=== PATIENT | female | born 1960 | race Caucasian/White ===

== ENCOUNTER → 2018-09-27 | Outpatient (CLI) | payer OTHER ==
--- NOTE | 2018-09-27 16:11 | RADIOLOGY REPORT (SQ) ---
EXAM DESCRIPTION: CHEST 2 VIEWS COMPLETED DATE/TIME: 09/27/2018 2:57 pm REASON FOR STUDY: ACUTE BRONCHITIS, WHEEZING COMPARISON: None. EXAM PARAMETERS: NUMBER OF VIEWS: two views TECHNIQUE: Digital Frontal and Lateral radiographic views of the chest acquired. RADIATION DOSE: NA LIMITATIONS: none FINDINGS: LUNGS AND PLEURA: No opacities, masses or pneumothorax. No pleural effusion. MEDIASTINUM AND HILAR STRUCTURES: No masses or contour abnormalities. HEART AND VASCULAR STRUCTURES: Heart normal size. No evidence for failure. BONES: No acute findings. HARDWARE: None in the chest. OTHER: No other significant finding. IMPRESSION: NO ACUTE RADIOGRAPHIC FINDING IN THE CHEST. TECHNICAL DOCUMENTATION: JOB ID: [id number] [employer]- All Rights Reserved Reading location - IP/workstation name: [email or web address]
== END ==
LOC: RAD 14:36
PROVIDERS: ATTEND Family Medicine Geriatric Medicine
DX: J20.9 Acute bronchitis, unspecified (principal); R06.2 Wheezing
CPT/HCPCS: 71046

== ENCOUNTER → 2018-10-25 | Outpatient (CLI) | payer OTHER | LOC: WI 14:51 | PROVIDERS: ATTEND Family Medicine | DX: Z12.31 Encounter for screening mammogram for malignant neoplasm of breast (principal) | CPT/HCPCS: 77063; 77067 ==

== ENCOUNTER → 2018-11-25 | Outpatient (CLI) | payer OTHER ==
--- NOTE | 2018-11-25 15:46 | WOMENS IMAGING REPORT ---
EXAM DESCRIPTION: RIGHT DIAGNOSTIC MAMMO W/CAD; U/S BREAST UNILAT LIMITED COMPLETED DATE/TIME: 11/25/2018 11:18 am; 11/25/2018 12:02 pm REASON FOR STUDY: N63.11 UNSPECIFIED LUMP IN THE RIGHT BREAST,UPPER OUTER QUADRANT; N63.11 RIGHT DELROY AST N63.11 UNSPECIFIED LUMP IN THE RIGHT BREAST, UPPER OUTER KATHRINE COMPARISON: Mammograms 10/25/2018, low 08/12/2017 TECHNIQUE: Cone compression craniocaudal, exaggerated craniocaudad, 90 mediolateral and mediolatera l oblique images of the breast recorded with digital acquisition. Additional right breast ultrasound was performed LIMITATIONS: None. FINDINGS: BREAST LATERALITY: Right MASSES: No suspicious masses. In particular, no worrisome nodules in the far upper outer quadrant ar e identified. CALCIFICATIONS: No new or suspicious calcifications. ARCHITECTURAL DISTORTION: None. DEVELOPING DENSITY: None. ASYMMETRY: None noted. OTHER: No other significant findings. Read with the assistance of CAD. .[facility] - R2 Mother Helper Version 9.2 Right breast ultrasound: Ultrasound of the upper outer quadrant right breast was performed. A 3 x 3 mm breast cyst is present in the central retroareolar region. In the far upper outer quadrant 9 to 11 o'clock position, a 7 x 5 mm intramammary lymph node and 8 x 3 mm lymph node are present. IMPRESSION: No mammographic or sonographic evidence for malignancy right breast BREAST DENSITY: c. The breasts are heterogeneously dense, which may obscure small masses. BIRAD: 2 Benign findings. RECOMMENDATION: RECOMMENDED FOLLOW UP: Please continue yearly bilateral screening tomosynthesis in A pri 2020 SPECIFIC INTERVENTION/IMAGING/CONSULTATION RECOMMENDED:No additional intervention/ imaging/consultati on needed at this time. COMMUNICATION:Patient notified by letter COMMENT: The patient has been notified of the results by letter per MQSA requirements. Additional no tification policies are in place for contacting patient with suspicious or incomplete findings. Quality ID #225: The [employer] recommends an annual screening mammogram for women aged 40 years or over. This facility utilizes a reminder system to ensure that all patients receive reminder letters, and/or direct phone calls for appointments. This includes reminders for routine scr eening mammograms, diagnostic mammograms, or other Breast Imaging Interventions when appropriate. Th is patient will be placed in the appropriate reminder system. TECHNICAL DOCUMENTATION: FINDING NUMBER: (1) ASSESSMENT: (1) JOB ID: [id number] [employer]- All Rights Reserved Reading location - IP/workstation name: [email or web address]
--- NOTE | 2018-11-25 15:46 | WOMENS IMAGING REPORT ---
EXAM DESCRIPTION: RIGHT DIAGNOSTIC MAMMO W/CAD; U/S BREAST UNILAT LIMITED COMPLETED DATE/TIME: 11/25/2018 11:18 am; 11/25/2018 12:02 pm REASON FOR STUDY: N63.11 UNSPECIFIED LUMP IN THE RIGHT BREAST,UPPER OUTER QUADRANT; N63.11 RIGHT DELROY AST N63.11 UNSPECIFIED LUMP IN THE RIGHT BREAST, UPPER OUTER KATHRINE COMPARISON: Mammograms 10/25/2018, low 08/12/2017 TECHNIQUE: Cone compression craniocaudal, exaggerated craniocaudad, 90 mediolateral and mediolatera l oblique images of the breast recorded with digital acquisition. Additional right breast ultrasound was performed LIMITATIONS: None. FINDINGS: BREAST LATERALITY: Right MASSES: No suspicious masses. In particular, no worrisome nodules in the far upper outer quadrant ar e identified. CALCIFICATIONS: No new or suspicious calcifications. ARCHITECTURAL DISTORTION: None. DEVELOPING DENSITY: None. ASYMMETRY: None noted. OTHER: No other significant findings. Read with the assistance of CAD. .[facility] - R2 Pulling Unit Operator Version 9.2 Right breast ultrasound: Ultrasound of the upper outer quadrant right breast was performed. A 3 x 3 mm breast cyst is present in the central retroareolar region. In the far upper outer quadrant 9 to 11 o'clock position, a 7 x 5 mm intramammary lymph node and 8 x 3 mm lymph node are present. IMPRESSION: No mammographic or sonographic evidence for malignancy right breast BREAST DENSITY: c. The breasts are heterogeneously dense, which may obscure small masses. BIRAD: 2 Benign findings. RECOMMENDATION: RECOMMENDED FOLLOW UP: Please continue yearly bilateral screening tomosynthesis in A pri 2020 SPECIFIC INTERVENTION/IMAGING/CONSULTATION RECOMMENDED:No additional intervention/ imaging/consultati on needed at this time. COMMUNICATION:Patient notified by letter COMMENT: The patient has been notified of the results by letter per MQSA requirements. Additional no tification policies are in place for contacting patient with suspicious or incomplete findings. Quality ID #225: The [employer] recommends an annual screening mammogram for women aged 40 years or over. This facility utilizes a reminder system to ensure that all patients receive reminder letters, and/or direct phone calls for appointments. This includes reminders for routine scr eening mammograms, diagnostic mammograms, or other Breast Imaging Interventions when appropriate. Th is patient will be placed in the appropriate reminder system. TECHNICAL DOCUMENTATION: FINDING NUMBER: (1) ASSESSMENT: (1) JOB ID: [id number] [employer]- All Rights Reserved Reading location - IP/workstation name: [email or web address]
== END ==
LOC: WI 10:50
PROVIDERS: ATTEND Family Medicine
DX: N63.11 Unspecified lump in the right breast, upper outer quadrant (principal)
CPT/HCPCS: 76642

== ENCOUNTER → 2019-04-03 | Outpatient (CLI) | payer OTHER | LOC: RAD 12:18 | PROVIDERS: ATTEND Family Medicine Geriatric Medicine | DX: J20.9 Acute bronchitis, unspecified (principal) | CPT/HCPCS: 71046 ==

== ENCOUNTER → 2019-11-06 | Outpatient (CLI) | payer OTHER ==
--- NOTE | 2019-11-06 16:55 | RADIOLOGY REPORT (SQ) ---
EXAM DESCRIPTION: FOOT LEFT COMPLETE; OS CALCIS/HEEL LEFT IMAGES COMPLETED DATE/TIME: 11/06/2019 4:43 pm REASON FOR STUDY: (M79.673)PAIN IN UNSPECIFIED FOOT COMPARISON: None. FINDINGS: Two views left os calcis: Mild calcaneal bone spur. No fracture or bone lesion or erosio n. Three views left foot: Small os trigonum incidentally noted. Mild osteopenia. No fracture. Great toe MP joint degenerative arthropathy. Joints are intact otherwise. No ankle joint effusion. TECHNICAL DOCUMENTATION: JOB ID: [id number] Reading location - IP/workstation name: [email or web address]
--- NOTE | 2019-11-06 16:55 | RADIOLOGY REPORT (SQ) ---
EXAM DESCRIPTION: FOOT LEFT COMPLETE; OS CALCIS/HEEL LEFT IMAGES COMPLETED DATE/TIME: 11/06/2019 4:43 pm REASON FOR STUDY: (M79.673)PAIN IN UNSPECIFIED FOOT COMPARISON: None. FINDINGS: Two views left os calcis: Mild calcaneal bone spur. No fracture or bone lesion or erosio n. Three views left foot: Small os trigonum incidentally noted. Mild osteopenia. No fracture. Great toe MP joint degenerative arthropathy. Joints are intact otherwise. No ankle joint effusion. TECHNICAL DOCUMENTATION: JOB ID: [id number] Reading location - IP/workstation name: [email or web address]
== END ==
LOC: RAD 16:00
PROVIDERS: ATTEND Family Medicine Geriatric Medicine
DX: M12.872 Other specific arthropathies, not elsewhere classified, left ankle and foot (principal); M77.32 Calcaneal spur, left foot; M79.672 Pain in left foot

== ENCOUNTER → 2019-12-27 | Outpatient (CLI) | payer OTHER ==
[2019-12-27 16:45] LABS: ABSOLUTE BASOPHILS # (AUTO) 0.1 10^3/uL (0.0-0.2); ABSOLUTE EOSINOPHILS # (AUTO) 1.4 10^3/uL (0.0-0.6); ABSOLUTE LYMPHOCYTES (AUTO) 2.9 10^3/uL (0.5-4.7); ABSOLUTE MONOCYTES (AUTO) 0.6 10^3/uL (0.1-1.4); ABSOLUTE NEUT (AUTO) 3.1 10^3/uL (1.7-8.2); BASOPHILS % (AUTO) 1.3 % (0-2); EOSINOPHILS % (AUTO) 17.5 % (0-6); HEMATOCRIT 41.4 % (36.0-47.0); HEMOGLOBIN 14.4 g/dL (12.0-15.5); LYMPHOCYTES % (AUTO) 35.4 % (13-45); MEAN CORPUSCULAR HEMOGLOBIN 30.9 pg (27.0-33.4); MEAN CORPUSCULAR HGB CONC 34.8 g/dL (32.0-36.0); MEAN CORPUSCULAR VOLUME 89 fl (80-97); MONOCYTES % (AUTO) 7.2 % (3-13); PLATELET COUNT 263 10^3/uL (150-450); RED BLOOD COUNT 4.67 10^6/uL (3.72-5.28); RED CELL DISTRIBUTION WIDTH 13.2 % (11.5-14.0); SEGMENTED NEUTROPHILS % (AUTO) 38.6 % (42-78); TOTAL CELLS COUNTED % (AUTO) 100 %; WHITE BLOOD COUNT 8.1 10^3/uL (4.0-10.5)
[2019-12-27 17:14] LABS: ANION GAP 10 (5-19); ASPARTATE AMINO TRANSFERASE 62 U/L (14-36); BLOOD UREA NITROGEN 16 mg/dL (7-20); CARBON DIOXIDE 27 mmol/L (22-30); CHLORIDE 101 mmol/L (98-107); GLUCOSE 118 mg/dL (75-110); POTASSIUM 4.5 mmol/L (3.6-5.0); URIC ACID 8.1 mg/dL (2.5-7.5)
== END ==
LOC: OD 15:53
PROVIDERS: ATTEND Family Medicine Geriatric Medicine
DX: R74.0 Nonspecific elevation of levels of transaminase and lactic acid dehydrogenase [LDH] (principal); E83.51 Hypocalcemia; M10.9 Gout, unspecified; Z79.899 Other long term (current) drug therapy
CPT/HCPCS: 36415; 80048; 83970; 84450; 84460; 84550; 85025

== ENCOUNTER → 2020-01-22 | Outpatient (CLI) | payer OTHER ==
--- NOTE | 2020-01-22 13:15 | WOMENS IMAGING REPORT ---
EXAM DESCRIPTION: BILAT SCREENING MAMMO W/CAD IMAGES COMPLETED DATE/TIME: 01/22/2020 9:08 am REASON FOR STUDY: Z12.31 ENCOUNTER FOR SCREENING MAMMOGRAM FOR MALIGNANT NEOPLASM OF BREAST Z12.31 ENCNTR SCREEN MAMMOGRAM FOR MALIGNANT NEOPLASM OF DELROY COMPARISON: 2019 EXAM PARAMETERS: Standard craniocaudal and mediolateral oblique views of each breast recorded using digital acquisition. Read with the assistance of CAD. .[facility] - [employer] Machine Adjuster Version 9.2 LIMITATIONS: None. FINDINGS: No suspicious masses, suspicious calcifications or architectural distortion. No areas of c oncern. IMPRESSION: NEGATIVE MAMMOGRAM. BIRADS 1 BREAST DENSITY: c. The breasts are heterogeneously dense, which may obscure small masses. BIRAD: ASSESSMENT: 1 NEGATIVE RECOMMENDATION: ROUTINE SCREENING COMMENT: The patient has been notified of the results by letter per MQSA requirements. Additional no tification policies are in place for contacting patient with suspicious or incomplete findings. Quality ID #225: The [employer] recommends an annual screening mammogram for women aged 40 years or over. This facility utilizes a reminder system to ensure that all patients receive reminder letters, and/or direct phone calls for appointments. This includes reminders for routine scr eening mammograms, diagnostic mammograms, or other Breast Imaging Interventions when appropriate. Th is patient will be placed in the appropriate reminder system. TECHNICAL DOCUMENTATION: FINDING NUMBER: (1) ASSESSMENT: (1) JOB ID: [id number] 2010 [employer]- All Rights Reserved Reading location - IP/workstation name: [email or web address]
== END ==
LOC: WI 08:43
PROVIDERS: ATTEND Family Medicine Geriatric Medicine
DX: Z12.31 Encounter for screening mammogram for malignant neoplasm of breast (principal)
CPT/HCPCS: 77067

== ENCOUNTER → 2020-01-30 | Outpatient (CLI) | payer OTHER ==
[2020-01-30 17:54] LABS: ANION GAP 8 (5-19); ASPARTATE AMINO TRANSFERASE 68 U/L (14-36); BLOOD UREA NITROGEN 17 mg/dL (7-20); CALCIUM 10.9 mg/dL (8.4-10.2); CARBON DIOXIDE 28 mmol/L (22-30); CHLORIDE 100 mmol/L (98-107); GLUCOSE 91 mg/dL (75-110); POTASSIUM 5.1 mmol/L (3.6-5.0); URIC ACID 5.5 mg/dL (2.5-7.5)
== END ==
LOC: OD 15:44
PROVIDERS: ATTEND Family Medicine Geriatric Medicine
DX: M10.9 Gout, unspecified (principal); I10 Essential (primary) hypertension; R74.0 Nonspecific elevation of levels of transaminase and lactic acid dehydrogenase [LDH]; Z79.899 Other long term (current) drug therapy
CPT/HCPCS: 36415; 80048; 84450; 84460; 84550

== ENCOUNTER → 2020-06-07 | Outpatient (CLI) | payer OTHER ==
--- NOTE | 2020-06-07 12:42 | RADIOLOGY REPORT (SQ) ---
EXAM DESCRIPTION: NM PARATHYROID IMAGING IMAGES COMPLETED DATE/TIME: 06/07/2020 12:29 pm REASON FOR STUDY: E83.52 HYPERCALCEMIA E83.52 HYPERCALCEMIA COMPARISON: None. RADIONUCLIDE AND DOSE: 21.5 millicuries Tc-99m Sestamibi. The route of agent administration: Intravenous ADDITIONAL DRUGS AND DOSES: None. TECHNIQUE: Early and delayed images of the neck acquired following radionuclide administration. LIMITATIONS: None. FINDINGS: Thyroid: Normal size. Homogeneous activity. Normal washout. No focal lesions. Parathyroid: No retained activity in the thyroid or elsewhere in the neck to indicate a parathyroid a denoma. Other: No other significant findings. IMPRESSION: NORMAL STUDY. NO EVIDENCE OF PARATHYROID ADENOMA. TECHNICAL DOCUMENTATION: JOB ID: [id number] 2010 [employer]- All Rights Reserved Reading location - IP/workstation name: [email or web address]
--- OUTSIDE RECORDS SUMMARY | 2020-06-10 08:55 | XMS REPORT ---
:1960 [facility] [place] [facility] [place] [address] [place] [address] Care Team Providers Name Role Phone FideliaDereje Primary Care Physician Unavailable ALFRED SERRATO Attending Clinician Unavailable Allergies, Adverse Reactions, Alerts This patient has no known allergies or adverse reactions. Medications Ordered Filled Start Stop Current Ordering Indication Dosage Frequency Signature Comments Components Medication Medication Date Date Medication? Clinician (SIG) Name Name montelukast No 1 Q1D montelukas 10 mg t 10 mg tablet Take tablet 1 tablet Take 1 every day tablet by oral every day route. by oral route. amlodipine No 1 Q1D amlodipine 2.5 mg 2.5 mg tablet Take tablet 1 tablet Take 1 every day tablet by oral every day route. by oral route. pravastatin No 1 Q1D pravastati 20 mg n 20 mg tablet Take tablet 1 tablet Take 1 every day tablet by oral every day route. by oral route. glipizide No 1 BID glipizide 10 mg 10 mg tablet Take tablet 1 tablet Take 1 twice a day tablet by oral twice a route. day by oral route. metformin No 1 BID metformin 1,000 mg 1,000 mg tablet Take tablet 1 tablet Take 1 twice a day tablet by oral twice a route. day by oral route. Problems Condition Condition Condition Status Onset Resolution Last Treatin g Comments Name Details Category Date Date Treatment Clinician Date Diabetes Diabetes Problem Active 2019-07 mellitus Mellitus 00:00: 00 Hypercalcem Hypercalcem Problem Active 2019-07 ia ia 00:00: 00 Hypertensiv Hypertensiv Problem Active 2019-07 e disorder e Disorder 00:00: 00 Hyperparath Hyperparath Problem Active yroidism yroidism 02-04 00:00: 00 Hypercalcem Hypercalcem Problem Active ia ia 7-13 00:00: 00 Procedures Procedure Date / Time Performed Performing Clinician Devic e NM, sestamibi scan 2020-05-21 00:00:00 ULTRASOUND, SOFT TISSUES OF HEAD 2020-04-18 00:00:00 AND NECK (EG, THYROID, PARATHYROID, PAROTID), REAL TIME WITH IMAGE DOCUMENTATION FINE NEEDLE ASPIRATION INCLUDING 2020-04-18 00:00:00 ULTRASOUND GUIDANCE, 1ST LESION FINE NEEDLE ASPIRATION INCLUDING 2020-04-18 00:00:00 ULTRASOUND GUIDANCE, EA ADDL LESION ULTRASOUND, SOFT TISSUES OF HEAD 2020-03-04 00:00:00 AND NECK (EG, THYROID, PARATHYROID, PAROTID), REAL TIME WITH IMAGE DOCUMENTATION Hysterectomy 1999-07-26 00:00:00 Hysterectomy 1999-07-26 00:00:00 Tonsillectomy 1983-07-26 00:00:00 Tonsillectomy 1983-07-26 00:00:00 Results Test Description Test Time Test Comments Text Results Atomic Results Result Comments pathology referral 2020-04-18 00:00:00 Path Report fine needle aspiration, ultrasound guided, thyroid (PROC) 04-18 00:00:00 Test Item Value Reference Range Comments FNA Aspiration, US, Thyroid (test code = FNA Aspiration, US, Thyroid) Completed Thyroperoxidase Ab [Units/volume] in Serum or [id number] 00:00:00 Test Item Value Reference Range Comments Thyroperoxidase Ab [Units/volume] in Serum (test code <9 0-34 = 8099-4) Thyrotropin [Units/volume] in Serum or [id number] 19:26:00 Test Item Value Reference Range Comments thyroid stim hormone (test code = thyroid stim 1.8915 uIU/mL 0 .3500-4.9400 hormone) Thyroxine (T4) free [Mass/volume] in Serum or [id number] 19:26:00 Test Item Value Reference Range Comments free T4 (test code = free T4) 0.99 NG/dL 0.70-1.48 25-Hydroxyvitamin D2+25-Hydroxyvitamin D3 [Mass/volume] in Serum or Plasma 2020-02-10 00:00:00 Test Item Value Reference Range Comments 25-Hydroxyvitamin D2+25-Hydroxyvitamin D3 19.2 NG/mL 30.0-1 00.0 [Mass/volume] in Serum or Plasma (test code = 03465-1) Phosphate [Mass/volume] in Serum or [id number] 00:00:00 Test Item Value Reference Range Comments Phosphate [Mass/volume] in Serum or Plasma (test 3.5 mg/dL 3.0-4.3 code = 2777-1) Basic metabolic 2000 panel - Serum or [id number] 00:00:00 Test Item Value Reference Range Comments Glucose [Mass/volume] in Serum or Plasma (test code = tnp 2345-7) Glomerular filtration rate/1.73 sq M.predicted among tnp non-blacks [Volume Rate/Area] in Serum, Plasma or Blood by Creatinine-based formula (CKD-EPI) (test code = 02770-8) Glomerular filtration rate/1.73 sq M.predicted among tnp blacks [Volume Rate/Area] in Serum, Plasma or Blood by Creatinine-based formula (CKD-EPI) (test code = 76054-6) Urea nitrogen/Creatinine [Mass Ratio] in Serum or tnp Plasma (test code = 3097-3) Calcium/Creatinine [Mass Ratio] in 24 hour [id number] 00:00:00 Test Item Value Reference Range Comments Calcium [Mass/volume] in 24 hour Urine (test 28.6 mg/dL not estab. code = 94164-5) Calcium [Mass/time] in 24 hour Urine (test 343 mg/24 HR 47-46 2 code = 6874-2) Creatinine [Mass/volume] in Urine (test code 98.3 mg/dL not estab. = 2161-8) Calcium/Creatinine [Mass ratio] in Urine 291 mg/g creat 29-442 (test code = 9321-1) PTH intact+calcium, [id number] 00:00:00 Test Item Value Reference Range Comments Calcium.ionized [Mass/volume] in Serum or Plasma by tnp Ion-selective membrane electrode (ISE) (test code = 06379-9) Parathyrin.intact [Mass/volume] in Serum or Plasma tnp (test code = 2731-8) 25-Hydroxyvitamin D2+25-Hydroxyvitamin D3 [Mass/volume] in Serum or Plasma 2020-02-09 00:00:00 Test Item Value Reference Range Comments 25-Hydroxyvitamin D2+25-Hydroxyvitamin D3 tnp [Mass/volume] in Serum or Plasma (test code = 53290-3) Phosphate [Mass/volume] in Serum or [id number] 00:00:00 Test Item Value Reference Range Comments Phosphate [Mass/volume] in Serum or Plasma (test code tnp = 2777-1) request [id number] 00:00:00 Test Item Value Reference Range Comments request problem (test code = request problem) tnp Basic metabolic 2000 panel - Serum or [id number] 00:00:00 Test Item Value Reference Range Comments Glucose [Mass/volume] in Serum or Plasma 165 mg/dL 65-99 (test code = 2345-7) Urea nitrogen [Mass/volume] in Serum or 15 mg/dL 8-27 Plasma (test code = 3094-0) Creatinine [Mass/volume] in Serum or Plasma 0.92 mg/dL 0.57 -1.00 (test code = 2160-0) Glomerular filtration rate/1.73 sq 68 mL/min/1.73 >59 M.predicted among non-blacks [Volume Rate/Area] in Serum, Plasma or Blood by Creatinine-based formula (CKD-EPI) (test code = 66580-3) Glomerular filtration rate/1.73 sq 78 mL/min/1.73 >59 M.predicted among blacks [Volume Rate/Area] in Serum, Plasma or Blood by Creatinine-based formula (CKD-EPI) (test code = 77338-5) Urea nitrogen/Creatinine [Mass Ratio] in 16 12-28 Serum or Plasma (test code = 3097-3) Sodium [Moles/volume] in Serum or Plasma 137 mmol/L 134-144 (test code = 2951-2) Potassium [Moles/volume] in Serum or Plasma 4.6 mmol/L 3.5- 5.2 (test code = 2823-3) Chloride [Moles/volume] in Serum or Plasma 99 mmol/L 96-10 6 (test code = 2075-0) Carbon dioxide, total [Moles/volume] in Serum 20 mmol/L 20 -29 or Plasma (test code = 2028-9) Calcium [Mass/volume] in Serum or Plasma 10.7 mg/dL 8.7-10. 3 (test code = 20387-2) Volume of 24 hour [id number] 16:59:00 Test Item Value Reference Range Comments Total Volume Measurement (test code = Total Volume 1200 ml Measurement) PTH intact+calcium, osinppk7244-15-01 00:00:00 Test Item Value Reference Range Comments Calcium.ionized [Mass/volume] in Serum or Plasma 5.4 mg/dL 4.5-5.6 by Ion-selective membrane electrode (ISE) (test code = 91740-4) Parathyrin.intact [Mass/volume] in Serum or Plasma 23 pg/mL 15-65 (test code = 2731-8) Assessments Condition Name Status Diagnosis Date Treating Clinici an Hypercalcemia Active 2020-05-21 14:07:13 Multinodular goiter Active 2020-04-18 15:41:03 Hypercalcemia Active 2020-04-18 17:32:17 Primary hyperparathyroidism Active 2020-04-18 17:32:17 History of calculus of kidney Active 2020-04-18 17:32:1 7 Non-toxic multinodular goiter Active 2020-03-04 15:21:1 7 Hypercalcemia Active 2020-03-04 15:27:00 Primary hyperparathyroidism Active 2020-03-04 15:27:11 History of calculus of kidney Active 2020-03-04 15:27:3 5 Vitamin D deficiency Active 2020-03-04 15:27:44 Hypercalcemia Active 2020-02-05 16:02:46 Primary hyperparathyroidism Active 2020-02-05 16:05:43 History of calculus of kidney Active 2020-02-05 16:07:0 7 Encounters Start End Encounter Admission Attending Care Care Encounter Date/Time Date/Time Type Type Clinicians Facility Department ID 2020-05-21 2020-05-21 Tamica Cedeño [id number] 00:00:00 00:00:00 [facility] [address] MD: [address] [place] [id number], Ph. 2020-04-22 2020-04-22 Outpatient ALFRED ORTIZ [facility] V00 [id number] 08:57:00 08:57:00 12 2020-04-18 2020-04-18 Alfred Cedeño [id number] _[id number] 00:00:00 00:00:00 MD Clarke: Medical Medical [address] [address] [employer] [address] [place] [address], Ph. 2020-03-04 2020-03-04 Outpatient EL ALFRED SERRATO [facility] [id number] 17:03:00 17:03:00 51 2020-03-04 2020-03-04 Alfred Del Torot [id number] _[id number] 00:00:00 00:00:00 MD Clarke: Medical Medical [id number] [address] [employer], [employer] [address] [place] [address], Ph. 2020-02-05 2020-02-05 Alfred Cedeño [id number] _202 00:00:00 00:00:00 MD Clarke: Medical Medical [id number] [address] [employer], [employer] [address] [place] [address], Ph. Payers Payer Name Policy Type Policy Number Effective Date Expiration D ate Plan of Treatment Planned Activity Planned Date Details Comments Future Appointment 2020-10-21 16:00:00 Alfred Serrato, [address] [place] [address]; [place] [address] Future Appointment 2020-06-17 14:30:00 Tamica Amos, [address] [facility]; , [place] [address] Social History Smoking Status Start Date Stop Date Never Smoker Vital Signs Vital Name Observation Time Observation Value Comments BP Diastolic 2020-05-21 00:00:00 87 mm[Hg] Height 2020-05-21 00:00:00 62 [in_i] BMI (Body Mass Index) 2020-05-21 00:00:00 32.2 kg/m2 BP Systolic 2020-05-21 00:00:00 139 mm[Hg] Body Weight 2020-05-21 00:00:00 176 [lb_av] BP Diastolic 2020-04-18 00:00:00 70 mm[Hg] Height 2020-04-18 00:00:00 62 [in_i] BMI (Body Mass Index) 2020-04-18 00:00:00 32.6 kg/m2 BP Systolic 2020-04-18 00:00:00 144 mm[Hg] Body Weight 2020-04-18 00:00:00 178 [lb_av] BP Diastolic 2020-03-04 00:00:00 94 mm[Hg] Height 2020-03-04 00:00:00 62 [in_i] BMI (Body Mass Index) 2020-03-04 00:00:00 32.7 kg/m2 BP Systolic 2020-03-04 00:00:00 142 mm[Hg] Body Weight 2020-03-04 00:00:00 179 [lb_av] BP Diastolic 2020-02-05 00:00:00 76 mm[Hg] Height 2020-02-05 00:00:00 62 [in_i] BMI (Body Mass Index) 2020-02-05 00:00:00 32.7 kg/m2 BP Systolic 2020-02-05 00:00:00 132 mm[Hg] Body Weight 2020-02-05 00:00:00 179 [lb_av] Hospital Discharge Instructions 1. Hypercalcemia hypercalcemia: care instructions NM, sestamibi scan - pt wants to do an Dundy. f/u after (might consider SPEC- CT if sestimibi not helpful) Discussion Note: None recorded.1. Multinodular goiter pathology referral - Right Middle Thyroid Nodule surgical pathology study - Right Middle Thyroid Nodule fine-needle thyroid biopsy: what to expect at home fine needle aspiration, ultrasound guided, thyroid (PROC) aspiration/biopsy, ultrasound guided (PROC) 2.Hypercalcemia hypercalcemia: care instructions 3. Primary hyperparathyroidism US, thyroid 4.History of calculus of kidney Discussion Note Total E & M visit time was over 25 minutes with over 50% face to face time, discussing the above issues, reviewing available testing, and discussing a treatment plan. All of her questions were answered.1. Hypercalcemia calcium/creatinine, ratio, 24h urine - Preferred container; plastic urine container with at least 10 mL 6N HCL (hydrochloric acid). Specimens submitted without preservative should be acidified after receipt to a pH of <2.0 to disolve calcium salts. volume, total, 24-hour urine BMP, serum or plasma phosphorus, serum or plasma unlisted lab - PTH intact+calcium, ionized vitamin D, 25-hydroxy, total, serum 2. Primary hyperparathyroidism bone density referral 3. History of calculus of kidney Discussion Note: None recorded. Patient educational handouts: No information available.
== END ==
LOC: RAD 07:41
PROVIDERS: ATTEND Surgery
DX: E83.52 Hypercalcemia (principal)
CPT/HCPCS: 78070; A9500; Q9969

== ENCOUNTER → 2020-07-01 | Outpatient (CLI) | payer OTHER ==
--- NOTE | 2020-07-01 15:51 | RADIOLOGY REPORT (SQ) ---
EXAM DESCRIPTION: CT SOFT TISSUE NECK WITH IMAGES COMPLETED DATE/TIME: 07/01/2020 3:29 pm REASON FOR STUDY: (E83.52)HYPERCALCEMIA E83.52 HYPERCALCEMIA COMPARISON: None. TECHNIQUE: Post IV contrasted scanning from skull base through lung apices with review of bone, soft tissue and lung windows. Reconstructed coronal and sagittal MPR images reviewed. All images stored on PACS. All CT scanners at this facility use dose modulation, iterative reconstruction, and/or weight based d osing when appropriate to reduce radiation dose to as low as reasonably achievable (ALARA). [facility]: Dose Right [facility]: CareDose [facility]: Dose Right [facility]: Teradose 4D [facility]: NeuMedics CONTRAST TYPE AND DOSE: contrast/concentration: Isovue 350.00 mmol/ml; Total Contrast Delivered: 75. 0 ml; Total Saline Delivered: 55.0 ml RENAL FUNCTION: Creatinine 0.6 RADIATION DOSE: CT Rad equipment meets quality standard of care and radiation dose reduction techniq ues were employed. CTDIvol: 18.6 mGy. DLP: 503 mGy-cm. . LIMITATIONS: None. FINDINGS: SKULL BASE: Intact. MAJOR SALIVARY GLANDS: No solid or cystic masses. No inflammatory changes. LYMPHADENOPATHY: No adenopathy. MUCOSAL MASSES OR ASYMMETRY: No mucosal masses or asymmetry. LARYNX/CORDS: No abnormal findings. VASCULAR STRUCTURES: The major vessels are patent. LUNG APICES: Clear. BONES: Intact. THYROID: There is a 12 mm low-density lesion in the right lobe of the thyroid. No thyroid masses. N o masses adjacent to the thyroid. PARANASAL SINUSES: Clear. OTHER: No other significant finding. IMPRESSION: 1. There is a low-density lesion in the right lobe of the thyroid that may represent a cyst. Consider thyroid ultrasound if clinically indicated. 2. No parathyroid mass is seen. 3. No other significant findings in the neck. TECHNICAL DOCUMENTATION: JOB ID: [id number] Quality ID # [id number]: Final reports with documentation of one or more dose reduction techniques (e.g., Au tomated exposure control, adjustment of the mA and/or kV according to patient size, use of iterative reconstruction technique) 2010 [employer]- All Rights Reserved Reading location - IP/workstation name: [email or web address]
== END ==
LOC: RAD 14:49
PROVIDERS: ATTEND Surgery
DX: E83.52 Hypercalcemia (principal); E07.89 Other specified disorders of thyroid
CPT/HCPCS: 70491; 82565

== ENCOUNTER → 2020-07-13 | Outpatient (CLI) | payer OTHER ==
[2020-07-13 09:01] LABS: ABSOLUTE BASOPHILS # (AUTO) 0.1 10^3/uL (0.0-0.2); ABSOLUTE EOSINOPHILS # (AUTO) 0.6 10^3/uL (0.0-0.6); ABSOLUTE LYMPHOCYTES (AUTO) 2.6 10^3/uL (0.5-4.7); ABSOLUTE MONOCYTES (AUTO) 0.6 10^3/uL (0.1-1.4); ABSOLUTE NEUT (AUTO) 4.9 10^3/uL (1.7-8.2); BASOPHILS % (AUTO) 0.9 % (0-2); EOSINOPHILS % (AUTO) 6.7 % (0-6); HEMATOCRIT 40.6 % (36.0-47.0); HEMOGLOBIN 14.2 g/dL (12.0-15.5); LYMPHOCYTES % (AUTO) 29.6 % (13-45); MEAN CORPUSCULAR VOLUME 89 fl (80-97); PLATELET COUNT 270 10^3/uL (150-450); RED BLOOD COUNT 4.58 10^6/uL (3.72-5.28); RED CELL DISTRIBUTION WIDTH 12.6 % (11.5-14.0); SEGMENTED NEUTROPHILS % (AUTO) 55.8 % (42-78); TOTAL CELLS COUNTED % (AUTO) 100 %; WHITE BLOOD COUNT 8.8 10^3/uL (4.0-10.5)
[2020-07-13 09:28] LABS: ANION GAP 9 (5-19); ASPARTATE AMINO TRANSFERASE 62 U/L (14-36); BLOOD UREA NITROGEN 15 mg/dL (7-20); CALCIUM 10.2 mg/dL (8.4-10.2); CARBON DIOXIDE 25 mmol/L (22-30); CHLORIDE 102 mmol/L (98-107); GLUCOSE 158 mg/dL (75-110); POTASSIUM 4.6 mmol/L (3.6-5.0)
[2020-07-15 05:37] LABS: CREATININE URINE 186.4 mg/dL (Not Estab.); MICROALBUMIN URINE 13.2 ug/mL (Not Estab.)
== END ==
LOC: OD 08:12
PROVIDERS: ATTEND Family Medicine Geriatric Medicine
DX: E78.5 Hyperlipidemia, unspecified (principal); E11.9 Type 2 diabetes mellitus without complications; E83.52 Hypercalcemia; M10.9 Gout, unspecified; Z79.899 Other long term (current) drug therapy
CPT/HCPCS: 36415; 80048; 82043; 82570; 83036; 83970; 84450; 84460; 84550; 85025